=== PATIENT | female | born 1940 | race Caucasian/White ===

== ENCOUNTER 2018-01-22 08:57 | Emergency (ER) | payer MEDICAID, MEDICARE ==
--- NOTE | 2018-01-22 09:51 | UC ---
Herbert Gu Gabriel, scribed for Farrah Colin MD on 01/22/18 at 0944 . Back Pain HPI - HPI Summary HPI Summary: This patient is a 77 year old F [place] [facility] [place] by her niece with a chief complaint of exacerbated chronic lower back pain that has been getting worse for the last 10 days. The patient rates the pain 10/10 in severity and states it radiates down her left leg. Symptoms alleviated by nothing, she has been taking Advil 200mg every six hours and using heat with little improvement. Her last dose was an hour ago. Patient reports pain "shooting down" buttock into LLE. Pt repors trouble eating and sleeping because of pain. Pt denies LLE weakness. Patient denies bladder/bowel incontinence, n/v , and recent falls. Pt has similar sx 10 years ago - was seen at pain clinicl for steroid injection. Pt presents today requesting the same. Pt has an appt with pain specialist for 01/31 for injection. States too long to wait. Pt has not called her PCP or the pain specialist. Pt does have a h/o HTN. Pt does not take as prescribed - has not taken today. Pt states when pain get bad, her blood pressure get high. Hx CABG and saw cardiology 6 months ago for check up. Pt has not had imaging done for her back in years. Takes ASA daily. The patient states she cannot stand the pain any longer. Patients medication reviewed this visit. - History of Current Complaint Chief Complaint: UCBackPain Stated Complaint: LOWER BACK/LEG Hx Obtained From: Patient Onset/Duration: Still Present Timing: Constant Severity Initially: Severe Severity Currently: Severe Pain Intensity: 10 Pain Scale Used: 0-10 Numeric Back Pain: Is Discrete @ - left low back, extend to left leg Aggravating Factor(s): Movement, Lifting, Walking Associated Signs And Symptoms: Positive: Weakness, Numbness. Negative: Bladder Incontinence, Bowel Incontinence - Allergies/Home Medications Allergies/Adverse Reactions: Allergies Allergy/AdvReac Type Severity Reaction Status Date / Time Penicillins Allergy Anaphylatic Verified 01/22/18 09:19 Shock Home Medications: Home Medications Ibuprofen TAB* [Advil TAB*] 200 mg PO PRN 01/22/18 [History] PMH/Surg Hx/FS Hx/Imm Hx Previously Healthy: No Endocrine History: Diabetes, Dyslipidemia Cardiovascular History: Hypertension, Congestive Heart Failure - had CABG Neurological History: Other Other Neurological History: chronic back pain - Surgical History Surgical History: Yes Surgery Procedure, Year, and Place: OPEN HEART SURGERY 1 YR AGO - BYPASS - NO IMPLANTS;carotid artery surgery - NO IMPLANTS; - Family History Known Family History: Positive: Hypertension Negative: Renal Disease, Respiratory Disease, Seizure Disorder, Blood Disorder - Social History Occupation: Retired Lives: With Family Alcohol Use: None Substance Use Type: None Smoking Status (MU): Never Smoked Tobacco Review of Systems Constitutional: Other - trouble eating and sleeping secondary to pain Musculoskeletal: Other: - back pain Neurological: Weakness, Paresthesia All Other Systems Reviewed And Are Negative: Yes Physical Exam - Summary Physical Exam Summary: Vital Signs Reviewed: Yes A+Ox3, discomfort with position change Eyes: Conjunctiva Clear, ENT: Hearing grossly normal Neck: Positive: Supple Respiratory: Positive: No respiratory distress, No accessory muscle use + CTA throughout no w/r Cardiovascular: RRR nl s1, s2 no m/r CBT <2 sec 2+ PT abd soft + BS nt/nd no guarding, no distension Musculoskeletal Exam: No spinous process pain No crepitus + TTP left paraspinal lumbar area no crepitus. +TTP with palp left buttock + flex/ext knee with increased pain left buttock + flex/ext ankle + great toe extension Neurological: Positive: Alert, + sensation throughout 1+ patella - no clonus pt reports equal sensation throughout Psychological: Positive: Normal Response To Family Skin: Positive: no rash, no ecchymosis Triage Information Reviewed: Yes Vital Signs: Initial Vital Signs Temp 98.6 F 01/22/18 09:22 Pulse 72 01/22/18 09:22 Resp 16 01/22/18 09:22 BP 218/67 01/22/18 09:22 Pulse Ox 97 01/22/18 09:22 Diagnostics - Radiology L spine Xray Radiology Interpretation Completed By: Radiologist - 1. Degenerative changes of the lumbar spine progressive when compared to the March 11, 2012 radiograph. 2. Incidentally noted is coarse atherosclerotic calcification of the lower abdominal aorta and iliac arteries. Please correlate to signs or symptoms of pelvic and lower extremity arterial insufficiency. Dr. Colin has reviewed this report. Re-Evaluation - Re-Evaluation First Eval Comment: Pt reports mild improvement following APAP. reviewed plan with pt: strict precautions with medrol dose pack, motrin and ASA -take with food, not together, concern for GI bleed. T+C#3 Q8hr - recommend stool softner. lidoderm patch. pt appt moved to sat. to ED with uncontrolled pain any other concerns pt in agreement with plan. Again discussed BP and importance of taking medications - risks Back Pain Course/Dx - Course Course Of Treatment: pt with progressive left low back pain with radiation to left buttock and left lower leg. Pt with CSM intact. + tender with palp left low back. Will give APAP. plain films. spoke with pain management office - moved appt to 01/28 at 9am. confirmed with pain specialist okay for oral steroid. d/w pt and niece importance of taking with po, precaution with NSAID. pt is on ASA - no other anticoagulation. will give codeine. lidoderm patch. advised to ED if uncontrolled pain. Pt also with significantly elevated BP. Pt has not taken meds. Pt without focal findings related to BP appreciated today 's exam. d/w pt importance of taking meds, need for close f/u with pcp. pt and niece comfortable and in agreement with plan - Differential Dx/Diagnosis Provider Diagnoses: left lumbar back pain with radiculopathy - Physician Notifications Discussed Care With: Kaushal Garg Time Discussed With Above Provider: 10:00 Instructed by Provider To: Other - I talked to Dr. Burnette office and they were able to move her appointment to 01-28-18 at 0900. I inquired about the use of oral steroids and they will inform me after they discuss the possibility with the doctor. 10:08 The office returned the call and suggests using oral steroids. Discharge - Sign-Out/Discharge Documenting (check all that apply): Discharge/Admit/Transfer - Discharge Plan Condition: Stable Disposition: HOME Prescriptions: Acetaminophen with Codeine [Acetaminophen-Cod #3 Tablet] 1 each PO Q8HR #15 tablet MDD 3 Lidocaine PATCH 5%* [Lidoderm 5% Patch*] 1 patch TRANSDERM DAILY #14 patch methylPREDNISolone [Medrol Dosepak 4 MG*] 4 mg PO .SEE MAXI INSTRUCTION #1 tab Patient Education Materials: Lumbar Radiculopathy (ED) Referrals: Kaushal Garg MD [Medical Doctor] - (01/28 at 9am) Lois Figueredo MD [Primary Care Provider] - Additional Instructions: - Take ibuprofen (200mg) every 6 hours for pain. Take with food EVERY time - Take Tylenol product (2 tylenol tablets OR 1 prescription tylenol with codeine ) every 8 hours for pain. Codeine may cause drowsiness - do NOT drive, operate machinery, drink alcohol while taking codeine. This medication causes constipation - it is recommended you take a stool softner such as colace EVERY DAY when you take this medication - apply pain patch to your back as instructed - take steroid EXACTLY as prescribed. Take with food EVERY time - when lying down - put a pillow under your knees to help support your back - your pain appointment has been changed to 01/28/18 at 9am - If your pain is uncontrolled - it is recommended you go to the emergency department for further evaluation and treatment - As discussed, your blood pressure was high today - it is very important you take your blood pressure medication as prescribed - uncontrolled blood pressure can cause medical condition such as strokes and heart attacks - Billing Disposition and Condition Condition: STABLE Disposition: Home The documentation as recorded by the Herbert chawla Gabriel accurately reflects the service I personally performed and the decisions made by me, Farrah Colin MD.
[2018-01-22] MEDS ORDERED: Acetaminophen TAB* 325 MG PO ONE (09:52)
--- NOTE | 2018-01-22 10:36 | RAD ---
INDICATION: Left low back pain with left lower extremity radiculopathy COMPARISON: Similar x-ray dated March 11, 2012 TECHNIQUE: 5 views of the lumbar spine were obtained. FINDINGS: Degenerative changes include loss of intervertebral disc height with marginal osteophyte formation at L1/L2. There is bony proliferation at the lower lumbar facet joints. The vertebral bodies and facet joints are appropriately aligned. Incidental note is made of coarse atherosclerotic calcification of the lower abdominal aorta extending into the iliac arteries. IMPRESSION: 1. Degenerative changes of the lumbar spine progressive when compared to the March 11, 2012 radiograph. 2. Incidentally noted is coarse atherosclerotic calcification of the lower abdominal aorta and iliac arteries. Please correlate to signs or symptoms of pelvic and lower extremity arterial insufficiency.
[2018-01-22 10:58] VITALS: BP 217/72
== END 2018-01-22 11:22 | disposition home or self-care (01) ==
LOC: UCEAST 08:57
DX: M54.5 Low back pain (principal); M54.16 Radiculopathy, lumbar region; M51.36 Other intervertebral disc degeneration, lumbar region; I70.0 Atherosclerosis of aorta; E11.9 Type 2 diabetes mellitus without complications; Z79.84 Long term (current) use of oral hypoglycemic drugs; E78.5 Hyperlipidemia, unspecified; I10 Essential (primary) hypertension; I50.9 Heart failure, unspecified; Z95.1 Presence of aortocoronary bypass graft; Z88.0 Allergy status to penicillin; Z82.49 Family history of ischemic heart disease and other diseases of the circulatory system
CPT/HCPCS: 72110; 99212; A9270-GY; G0463

== ENCOUNTER 2018-09-05 21:48 | Observation (INO) | payer MEDICARE, MEDICAID ==
[2018-09-05] MEDS ORDERED: Labetalol IV* 5 MG/ML 20 ML VIAL IV PUSH ONE (22:23)
--- NOTE | 2018-09-05 22:25 | ED ---
HPI Chest Pain - HPI Summary HPI Summary: This patient is a 78 year old F brought in by ambulance to [facility] with a chief complaint of intermittent CP since 15:00. Patient notes the pain radiates to her back. The patients niece notes the patient took 2 doses of NTG and 2 doses of ASA earlier today. EMS report the patient had elevated BP. The patient rates the pain 1/10 in severity. Symptoms aggravated by nothing. Symptoms alleviated by nothing. Patient reports tremors. Patient denies nausea, vomiting, diaphoresis, or SOB. Hx bypass 2013, DM, and HTN. Dr. Ivan is her caustic loader. - History of Current Complaint Time Seen by Provider: 09/05/18 22:01 Hx Obtained From: Patient, Family/Pt Sitter - patient's niece Onset/Duration: Started Hours Ago, Atraumatic, Still Present Timing: Intermittent Initial Severity: Mild Current Severity: Mild Pain Intensity: 1 Pain Scale Used: 0-10 Numeric Chest Pain Radiates: Yes Chest Pain Radiates To:: Back Aggravating Factor(s): Nothing Alleviating Factor(s): Nothing Associated Signs and Symptoms: Positive: Chest Pain, Back Pain. Negative: Shortness of Breath, Diaphoresis, Nausea, Vomiting - Allergy/Home Medications Allergies/Adverse Reactions: Allergies Allergy/AdvReac Type Severity Reaction Status Date / Time Penicillins Allergy Anaphylatic Verified 03/24/18 15:29 Shock PMH/Surg Hx/FS Hx/Imm Hx Endocrine/Hematology History: Reports: Hx Diabetes Cardiovascular History: Reports: Hx Coronary Artery Disease - OPEN HEART- [facility] - BYPASS X 5, Hx Hypertension, Other Cardiovascular Problems/Disorders - carotid endartarectomy 2014 Denies: Hx Pacemaker/ICD Respiratory History: Denies: Hx Asthma, Hx Pulmonary Embolism History: Denies: Hx Renal Disease Musculoskeletal History: Reports: Hx Arthritis, Hx Back Problems - chronic back pain, Hx Bursitis, Hx Tendonitis Denies: Hx Osteoporosis, Hx Scoliosis Sensory History: Reports: Hx Cataracts - BILATERAL Denies: Hx Contacts or Glasses, Hx Hearing Aid Opthamlomology History: Reports: Hx Cataracts - BILATERAL Denies: Hx Contacts or Glasses Neurological History: Reports: Hx Migraine - HX OF IN THE PAST, Other Neuro Impairments/Disorders - PAIN CLINIC PATIENT Denies: Hx Headaches Psychiatric History: Denies: Hx Panic Disorder - Surgical History Surgery Procedure, Year, and Place: OPEN HEART SURGERY 2014 - [facility]PASS - NO IMPLANTS;. carotid artery surgery 2014 NO IMPLANTS;. CATARACT Hx Anesthesia Reactions: Yes - NAUSEA AND VOMITING Infectious Disease History: No Infectious Disease History: Denies: Traveled Outside the [place] in Last 30 Days - Family History Known Family History: Positive: Hypertension Negative: Renal Disease, Respiratory Disease, Seizure Disorder, Blood Disorder - Social History Alcohol Use: None Substance Use Type: Reports: None Smoking Status (MU): Never Smoked Tobacco Have You Smoked in the Last Year: No Review of Systems Negative: Skin Diaphoresis Positive: Chest Pain Negative: Shortness Of Breath Negative: Vomiting, Nausea Musculoskeletal: Other - tremors All Other Systems Reviewed And Are Negative: Yes Physical Exam - Summary Physical Exam Summary: VITAL SIGNS: Reviewed. GENERAL: Patient is a well-developed and nourished FEMALE who is lying comfortable in the stretcher. Patient is not in any acute respiratory distress. HEAD AND FACE: No signs of trauma. No ecchymosis, hematomas or skull depressions. No sinus tenderness. EYES: PERRLA, EOMI x 2, No injected conjunctiva, no nystagmus. EARS: Hearing grossly intact. Ear canals and tympanic membranes are within normal limits. MOUTH: Oropharynx within normal limits. NECK: Supple, trachea is midline, no adenopathy, no JVD, no carotid bruit, no c- spine tenderness, neck with full ROM. CHEST: Symmetric, no tenderness at palpation LUNGS: Clear to auscultation bilaterally. No wheezing or crackles. CVS: Regular rate and rhythm, S1 and S2 present, no murmurs or gallops appreciated. ABDOMEN: Soft, non-tender. No signs of distention. No rebound no guarding, and no masses palpated. Bowel sounds are normal. EXTREMITIES: FROM in all major joints, no edema, no cyanosis or clubbing. NEURO: Alert and oriented x 3. No acute neurological deficits. Speech is normal and follows commands. SKIN: Dry and warm Triage Information Reviewed: Yes Vital Signs On Initial Exam: Initial Vitals Temp Pulse Resp BP Pulse Ox 99.9 F 76 16 203/92 97 09/05/18 22:00 09/05/18 22:00 09/05/18 22:00 09/05/18 22:00 09/05/18 22:00 Vital Signs Reviewed: Yes Diagnostics - Vital Signs Vital Signs Temp Pulse Resp BP Pulse Ox 09/05/18 22:00 99.9 F 76 16 203/92 97 - Laboratory Result Diagrams: 09/05/18 22:44 09/05/18 22:44 Lab Statement: Any lab studies that have been ordered have been reviewed, and results considered in the medical decision making process. - EKG 23:11 Cardiac Rate: NL - at 70 bpm EKG Rhythm: Sinus Rhythm ST Segment: Non-Specific - non-specific t wave changes in the interior leads Summary of EKG Findings: sinus rhythm at 70 bpm with non-specific T wave changes in the inferior leads. Chest Pain Course/Dx - Course Course Of Treatment: This patient is a 78 year old F with Hx bypass 2014, DM, and HTN brought in by ambulance to [facility] with a chief complaint of intermittent CP since 15:00. Patient notes the pain radiates to her back. The patients niece notes the patient took 2 doses of NTG and 2 doses of ASA earlier today. EMS report the patient had elevated BP. An EKG reveals sinus rhythm at 70 bpm with non-specific T wave changes in the inferior leads. CTA Chest reveals, per radiologist, no acute findings. ED physician has reviewed this radiology report. Test results with no significant abnormalities except for elevated lactic acid. In the ED course the patient was given contrast, Trandate, morphine , and Zofran. We discussed patient care with Dr. Duaret and they agreed to admit the patient. Patient will be admitted to [facility] [place]. The patient is agreeable with this plan. Dx CP and HTN. - Diagnoses Provider Diagnoses: Chest pain, HTN (hypertension) - Provider Notifications Discussed Care Of Patient With: Sandy Duarte Time Discussed With Above Provider: 00:45 Instructed by Provider To: Admit As Inpatient Discharge - Sign-Out/Discharge Documenting (check all that apply): Patient Departure - admit - Discharge Plan Condition: Stable Disposition: ADMITTED TO [facility] Referrals: Lois Figueredo MD [Primary Care Provider] - - Attestation Statements Document Initiated by Scribe: Yes Documenting Scribe: Klaudia Castellanos Provider For Whom Scribe is Documenting (Include Credential): Landon Mayers MD Scribe Attestation: Klaudia Gu, scribed for Landon Mayers MD on 09/06/18 at 0120. Status of Scribe Document: Ready
[2018-09-05 22:50] LABS: ABS Basophils 0.1 10^3/ul (0-0.2); ABS Eosinophils 0.1 10^3/ul (0-0.6); ABS Lymphocytes 3.3 10^3/ul (1.0-4.8); ABS Monocytes 0.6 10^3/ul (0-0.8); ABS Neutrophils 5.5 10^3/ul (1.5-7.7); ABS Nucleated RBC 0 10^3/ul; Eosinophil % 1.2 %; Hematocrit 42 % (35-47); Hemoglobin 13.9 g/dl (12.0-16.0); Lymphocyte % 34.3 %; Mean Corpuscular HGB Conc 33 g/dl (31-36); Mean Corpuscular Hemoglobin 27 pg (27-31); Mean Corpuscular Volume 83 fL (80-97); Mean Platelet Volume 7.7 fL (7.4-10.4); Nucleated Red Blood Cells % 0.1; Platelet Count 274 10^3/ul (150-450); Red Blood Count 5.09 10^6/ul (4.00-5.40); Red Cell Distribution Width 15 % (10.5-15); White Blood Count 9.7 10^3/ul (3.5-10.8)
[2018-09-05 22:58] LABS: Activated Partial Thrombo Time 32.5 seconds (26.0-36.3); INR 0.92 (0.77-1.02)
[2018-09-05 23:08] LABS: Albumin 4.5 g/dL (3.2-5.2); BUN/Creatinine Ratio 19.6 (8-20); Calcium 10.6 mg/dL (8.6-10.3); EGFR Non-African American 58.9 (>60); Globulin 4.4 g/dL (2-4); Magnesium 1.9 mg/dL (1.9-2.7); Potassium 3.9 mmol/L (3.5-5.0); Total Bilirubin 0.6 mg/dL (0.2-1.0); Total Protein 8.9 g/dL (6.4-8.9)
[2018-09-05] MEDS ORDERED: Iodixanol* (CONTRAST) 320 MG/ML 100 ML SDV IV ONE (23:29)
[2018-09-05] MEDS: Morphine VIAL* 4 MG/ML VIAL (1 ml vial) IV ONE (23:31)
[2018-09-05] MEDS: Ondansetron INJ* 2 MG/ML VIAL IV ONE (23:31)
[2018-09-06] MEDS ORDERED: Ondansetron INJ* 2 MG/ML VIAL ONE (01:19)
[2018-09-06] MEDS ORDERED: Morphine VIAL* 4 MG/ML VIAL (1 ml vial) ONE (01:20)
[2018-09-06] MEDS: Morphine VIAL* 4 MG/ML VIAL (1 ml vial) IV ONE (01:24)
[2018-09-06] MEDS: Ondansetron INJ* 2 MG/ML VIAL IV ONE (01:25)
[2018-09-06] MEDS ORDERED: Dextrose 50% Syringe 50 ML* 25 GM/50 ML SYRINGE IV PUSH PRN (03:12)
[2018-09-06] MEDS ORDERED: hydrALAZINE IV* 20 MG/ML VIAL IV SLOW PU PRN (03:21)
[2018-09-06] MEDS ORDERED: Nitroglycerin TAB 0.4 MG* 0.4 MG TAB SL PRN (03:21)
[2018-09-06] MEDS ORDERED: PROCHLORPERAZINE INJ 5 MG/ML 2 ML VIAL IV PRN (04:12)
[2018-09-06] MEDS ORDERED: Heparin VIAL(*) 5000 UNITS/ML VIAL (FIVE THOUSAND) SUBCUT SCH (06:00)
[2018-09-06 06:22] LABS: HDL Cholesterol 41.7 mg/dL
[2018-09-06] MEDS ORDERED: Insulin LISPRO* 1 UNITS UNIT SUBCUT SCH (07:30)
[2018-09-06] MEDS ORDERED: Hydrochlorothiazide TAB* 25 MG PO SCH (09:00)
[2018-09-06] MEDS ORDERED: Aspirin EC TAB* 81 MG TAB.EC PO SCH (09:00)
[2018-09-06] MEDS ORDERED: Metoprolol Succinate XL TAB* 25 MG PO SCH (09:00)
--- NOTE | 2018-09-06 09:50 | HP ---
CC: Dr. Figueredo; Dr. All Ivan HISTORY AND PHYSICAL: DATE OF ADMISSION: 09/06/18. TIME OF EVALUATION: 3 a.m. CHIEF COMPLAINT: Chest pain. HISTORY OF PRESENT ILLNESS: Mrs. Steele is a 78-year-old lady with a past medical history of c oronary artery disease, status post CABG; peripheral vascular disease, status post carotid endarterec romulo; type 2 diabetes; hyperlipidemia; rheumatoid arthritis; hypertension; osteopenia; meningioma, wh o presents to the emergency room with complaints of chest pain. The patient states that she was in her usual state of health until yesterday around 3 p.m. She state s that she was just sitting down when she started to experience retrosternal chest pain radiating to her back. She stated the pain was 7/10 intensity. She took an aspirin and nitroglycerin and had florin e improvement. The pain recurred later, and the patient took another aspirin and another nitroglycer in and called 911 and came to the emergency room for further evaluation. She denies palpitation or shortness of breath, but states that her chest felt tight. She states that she usually can move around and walk with no episodes of chest pain, and even before when she had he r CABG, she did not experience chest pain. She denies fever, chills, cough, nausea, vomiting, diarrhea, or urinary complaints. PAST MEDICAL HISTORY: 1. Coronary artery disease. The patient had 5 vessel CABG done in 2013 in [facility]. The patient follo ws with Dr. Ivan, and she had a stress test in 2015 that showed some residual apical ischemia. On her last visit, a year ago, he had recommended adding amlodipine to her regimen for better blood pres sure control and also as an antianginal, but the patient declined it. 2. Peripheral vascular disease, status post right carotid endarterectomy in 2014. The patient also h ad lower extremity claudication and was following with Dr. Vega. 3. Type 2 diabetes. 4. Hypertension. 5. Hyperlipidemia. 6. Rheumatoid arthritis. 7. History of meningioma. PAST SURGICAL HISTORY: 1. Status post 5 vessel CABG done in May 2014 in [facility]. 2. Status post right carotid endarterectomy, done in September 2014. FAMILY HISTORY: There are family members with a history of leukemia. Her mother at age 60 of coronary artery disease. Her father during the war. SOCIAL HISTORY: She is a . No history of tobacco, alcohol or drug use. Surrogate decision make r is her niece, Lucila Bundy, phone number is [phone]. REVIEW OF SYSTEMS: A 14-point review of systems was performed and all the pertinent negative and pos itive findings are in the HPI. PHYSICAL EXAMINATION GENERAL: The patient is a pleasant elderly lady, lying in the ED stretcher, in no acute distress. VITAL SIGNS: Temperature 99.9, heart rate is 75, respiratory rate is 15, oxygen saturation 96% on ro om air, blood pressure is 111/52, but on arrival was 203/92. HEENT: Pupils are equal; moist mucous membranes. CHEST: Breath sounds bilaterally with no added sounds. CVS: Normal S1, S2. Regular rate and rhythm. ABDOMEN: Soft. Breath sounds present. EXTREMITIES: No edema. NEUROLOGIC: She is alert and oriented x3. Able to move all 4 extremities. LABORATORY/IMAGING DATA: The patient had a CBC that showed a WBC of 9.7, hemoglobin of 13.9, hemato crit 42, platelets of 274, 56% neutrophils. INR is 0.9. Chemistry showed a sodium of 136, potassium of 3.9, chloride of 98, bicarbonate 26, anion gap of 12, BUN of 18, creatinine of 0.92, glucose of 18 4 with a lactic acid of 2.3, calcium of 10.6, magnesium 1.9. LFTs were normal. BNP was 121, troponin has been 0.01 x2. EKG done on 09/05/18 at 11 p.m., showed sinus rhythm at 70 beats per minute with minimal ST depressio ns in V3, V4, and V5. T wave inversions in III and aVF. There [facility] but this prior one was done in 2003, before her CABG. CTA of the chest and abdomen and pelvis showed no acute findings. No sign of aortic dissection. ASSESSMENT AND PLAN: Mrs. Steele is a 78-year-old lady with past medical history of coronary a rtery disease, status post CABG; peripheral vascular disease, status post right carotid endarterectom y; hypertension; hyperlipidemia; type 2 diabetes; rheumatoid arthritis, who presents to the emergency room after 2 episodes of chest pain. 1. Chest pain, rule out acute coronary syndrome. [facility], and we are going to check serial troponins. I believe her pain is likely secondary to hypertensiv e urgency. Looking at Dr. Ivan's note from a year ago, he was already concerned with her blood pre ssure and had recommended adding amlodipine to her regimen and she declined it. At that time, she wa s also on an SHANTELLE inhibitor on top of beta-zachariah and hydrochlorothiazide, but she tells me that she is not taking the SHANTELLE inhibitor anymore, although she cannot tell me exactly why. On arrival to the emergency room, her blood pressure was 203/92 and that is in the setting of known apical ischemia on a stress test in 2016. She will have serial troponins. We are going to monitor her on telemetry, an d we will continue to monitor her blood pressure. At the time of my interview, her blood pressure is now at 111/52 after receiving 20 mg of labetalol in the emergency room, so I am just going to contin ue her medications as they are for now, but if her blood pressure continues to trend up, we may have to consider adding an SHANTELLE inhibitor back or even adding amlodipine as Dr. Ivan had planned before. The patient at this time is not anxious sitting and staying in the hospital to have a stress test an d echocardiogram. So, the plan is to rule her out and she states she already has an appointment sche duled to see Dr. Ivan on . 2. Mild hypercalcemia. This is probably related to her hydrochlorothiazide, but I am going to check intact PTH and start her workup from there. 3. Type 2 diabetes. I will check her hemoglobin A1c. Metformin is on hold for now. As the patient had a contrasted study, she will have fingersticks with a lispro sliding scale a.c. and at bedtime. 4. Hyperlipidemia. I will also check a lipid profile. Last year, the patient was started on high-d ose statin, and this has also been discontinued, although she cannot tell me exactly why. With her h istory of coronary artery disease and peripheral vascular disease, she would certainly benefit of a s tatin, and I will check her lipid profile today. 5. DVT prophylaxis. The patient has a score of 4 on the DVT Prophylaxis Risk Assessment Guide. She would be started on subcutaneous heparin. 6. Code status is full. TIME SPENT: Approximately 45 minutes was spent with the patient interview, medical records review, p hysical examination to complete the admission, more than half of this time was spent [id number] wit h the patient and coordination of care. [id number]/[facility] #: [id number]
--- NOTE | 2018-09-06 11:04 | PN ---
Subjective Date of Service: 09/06/18 Interval History: Ms. Steele denies complaint today. She reports that she has had no chest pain since arrival. She confirms that she was taken off lisinopril as she developed a cough. She is eager for discharge to home. She lives alone but has close support from family. She has an appt with her PCP on Saturday and a follow up with cardiology on 09/18/18. Objective Active Medications: Aspirin (Aspirin Ec Tab*) 81 mg PO DAILY PREETHI Dextrose (D50w Syringe 50 Ml*) 12.5 gm IV PUSH .FOR FS < 60 - SS PRN Heparin Sodium (Porcine) (Heparin Vial(*)) 5,000 units SUBCUT Q8HR PREETHI Hydralazine HCl (Apresoline Iv*) 5 mg IV SLOW PU Q6H PRN Hydrochlorothiazide (Hydrodiuril Tab*) 25 mg PO DAILY PREETHI Insulin Human Lispro (Humalog*) 0 units SUBCUT ACHS PREETHI; Protocol Metoprolol Succinate (Toprol Xl Tab*) 25 mg PO TID PREETHI Nitroglycerin (Nitroglycerin Tab 0.4 Mg*) 0.4 mg SL Q5M PRN Prochlorperazine Edisylate (Compazine Inj*) 5 mg IV Q6H PRN Vital Signs: Temp Pulse Resp BP Pulse Ox 97.5 F 76 16 102/48 96 09/06/18 07:35 09/06/18 07:35 09/06/18 07:35 09/06/18 07:35 09/06/18 07:35 Oxygen Devices in Use Now: None Appearance: Female sitting up in chair in NAD Eyes: No Scleral Icterus Ears/Nose/Mouth/Throat: Mucous Membranes Moist Neck: Trachea Midline Respiratory: Symmetrical Chest Expansion and Respiratory Effort, Clear to Auscultation Cardiovascular: NL Sounds; No Murmurs; No JVD, No Edema Abdominal: NL Sounds; No Tenderness; No Distention Lymphatic: No Cervical Adenopathy Extremities: No Edema Skin: No Rash or Ulcers Neurological: Alert and Oriented x 3, NL Muscle Strength and Tone Nutrition: Taking PO's Result Diagrams: 09/05/18 22:44 09/05/18 22:44 Assess/Plan/Problems-Billing Assessment: Ms. Steele is a 78 yo F with a PMH of CAD with CABG, PVD, DM, HTN, who was admitted on 09/06/18 with chest pain and uncontrolled hypertension. - Patient Problems (1) Chest pain Comment: - Troponin negative x 3, EKG without ischemia - Suspect secondary to uncontrolled hypertension - See below (2) Hypertension Comment: - SBP 200 on arrival, now running 100-170s. - BP labile, would recommend starting ARB as she did not tolerate lisinopril. Close follow up with PCP and Dr. Ivan already arranged. (3) Diabetes Comment: - not on home meds (4) Coronary artery disease Comment: - ACS ruled out, recommend close follow up with [facility] and PCP (5) DVT prophylaxis Comment: - Heparin SQ (6) Full code status Comment: Status and Disposition: OBV. Discharge to home
[2018-09-06 11:18] VITALS: BP 151/61
--- NOTE | 2018-09-06 12:42 | DS ---
CC: Dr. Figueredo; Dr. Ivan * [facility] MEDICINE DISCHARGE SUMMARY: DATE OF ADMISSION: 09/06/18 DATE OF DISCHARGE: 09/06/18 PRIMARY CARE PROVIDER: Dr. Figueredo. WEIGHT GUESSER: Dr. Ivan. ATTENDING PHYSICIAN: Dr. Grewal * (dictation provided by Loly Castillo NP). PRIMARY DIAGNOSIS: Chest pain thought to be secondary to uncontrolled hypertension. SECONDARY DIAGNOSES: 1. Coronary artery disease with coronary artery bypass grafting. 2. Peripheral vascular disease. 3. Type 2 diabetes. 4. Hypertension. 5. Hyperlipidemia. 6. Rheumatoid arthritis. 7. History of meningioma. PAST SURGICAL HISTORY: 1. Status post 5 vessel CABG, May 2014 in [facility]. 2. Status post right carotid endarterectomy, September 2014. MEDICATIONS AT THE TIME OF DISCHARGE: 1. Losartan 25 mg p.o. daily (new medication). 2. Metformin 850 mg 2 tabs p.o. daily. 3. Hydrochlorothiazide 25 mg p.o. daily. 4. Aspirin 81 mg p.o. daily. 5. Metoprolol succinate 50 mg p.o. t.i.d. 6. Losartan 25 mg p.o. daily. HOSPITAL COURSE: Ms. Steele is a 78-year-old female who presented to the emergency room late evening on 09/05/18 with concern for chest pain. Please see the dictated H and P from Dr. Lau for complete details. In brief, the patient reported that she had been in her normal state of health until about 3 p.m. prior to arrival in the ED. The patient said she was at rest when she suddenly began to experience retrosternal chest pain radiating into her back. The pain was 7/10 in intensity. She took aspirin, nitroglycerin and had some improvement. Thereafter, she called the emergency medical services and was brought to the emergency room. In the emergency room, Ms. Steele had labs which said troponin was 0.01. EKG showed no evidence of ischemia. She had a chest, abdomen, and pelvis CTA which showed no acute findings. Ms. Steele was observed. She had additional 2 troponins, both of which were negative. She has remained completely chest pain free since arrival. In terms of control of her blood pressure, we initially treated with intervenous labetalol which controlled her blood pressure. Her blood pressure has been somewhat labile in the middle of night, running as low as in the 90s, but now during the rest of stay has been running 150s to 170s. Ms. Steele is medically stable for discharge to home, to follow up closely with primary care physician, Dr. Figueredo and her deck engine operator, Dr. Ivan. She has an appointment with Dr. Figueredo on 09/10/18. She has an appointment with Dr. vIan on 09/18/18. In terms of her blood pressure , she states that she had gone off lisinopril outpatient due to the development of a cough. I am recommending that she switch over to losartan and she will be provided with that prior to her departure today. Ms. Steele and her daughter have been strongly encouraged for the patient to return immediately to the emergency room should she have further chest pain. DISPOSITION: To home. DIET: Low fat, low salt, low carb. ACTIVITY: As tolerated. FOLLOWUP PLANS: 1. Please follow up with Dr. Figueredo on 09/10/18 for an already scheduled appointment. 2. Please follow up with Dr. Ivan on 09/18/18, for a prescheduled appointment. TIME SPENT: Approximately 60 minutes was spent on the discharge of this patient , more than half time spent with the patient at the bedside reviewing the events leading up to and during this hospitalization, performing the physical examination, and reviewing my plan of care. LOLY CASTILLO NP [id number]/[facility] #: [id number] HANNA
== END 2018-09-06 12:00 | disposition home or self-care (01) ==
LOC: ED 21:48 → MEDTELE 09-06 03:04
PROVIDERS: ADMIT Internal Medicine; ATTEND Internal Medicine
DX: R07.9 Chest pain, unspecified (principal); I10 Essential (primary) hypertension; I25.10 Atherosclerotic heart disease of native coronary artery without angina pectoris; Z95.5 Presence of coronary angioplasty implant and graft; I73.9 Peripheral vascular disease, unspecified; E11.9 Type 2 diabetes mellitus without complications; M06.9 Rheumatoid arthritis, unspecified; Z86.011 Personal history of benign neoplasm of the brain; Z79.82 Long term (current) use of aspirin; Z88.0 Allergy status to penicillin
CPT/HCPCS: 36415; 71275; 74174; 80053; 80061; 83036; 83605; 83735; 83880; 83970; 84484; 85025; 85610; 85730; 93005; 96372; 96374; 96375; 99284; A9270-GY; G0378; J0780; J1644; J2270; J2405; Q9967